=== PATIENT | female | born 1965 ===

== ENCOUNTER → 2017-09-26 | Outpatient (CLI) | payer OTHER ==
[2017-09-26 10:18] LABS: Basophils # (auto) 0.1 uL; Basophils % (auto) 0.7 % (0.0-2.0); Eosinophils # (auto) 0 uL; Eosinophils % (auto) 0.3 % (0.0-7.0); Hematocrit 43.6 % (36.0-46.0); Hemoglobin 14.9 g/dL (12.2-16.2); Lymphocytes # (auto) 1.8 uL; Lymphocytes % (auto) 19.1 % (10.0-50.0); Mean Corpuscular Hemoglobin 32.8 pg (28.0-32.0); Mean Corpuscular Hgb Conc. 34.1 g/dL (32.0-36.0); Monocytes # (auto) 0.4 uL; Monocytes % (auto) 4.3 % (0.0-12.0); Neutrophils % (auto) 75.6 % (37.0-80.0); Platelet Count (auto) 337 10^3/uL (140-450); Red Blood Cells 4.55 10^6/uL (4.0-5.20); Red Cell Distribution Width 12.9 % (11.8-14.3); White Blood Cell 9.3 10^3/uL (4.4-10.8)
[2017-09-26 11:41] LABS: Urine Bacteria FEW /hpf (None Seen); Urine Blood 2+ /uL (Negative); Urine Budding Yeast OCCASIONAL /hpf (None Seen); Urine Mucus FEW (None Seen); Urine Specific Gravity 1.011 (1.001-1.035); Urine WBC <1 /hpf (0 - 5)
[2017-09-26 13:45] LABS: Albumin 4.1 g/dL (3.4-5.0); BUN/Creatinine Ratio 14.1; Bilirubin, Total 0.5 mg/dL (0.2-1.0); Calcium 9.3 mg/dL (8.5-10.1)
[2017-09-26 15:46] LABS: Potassium 5.7 mmol/L (3.5-5.1)
== END | disposition home or self-care (01) ==
LOC: LAB 09:52
PROVIDERS: ATTEND Nurse Practitioner
DX: E78.5 Hyperlipidemia, unspecified (principal)
CPT/HCPCS: 36415; 80053; 80061; 81001; 84443; 85025